=== PATIENT | female | born 1980 | race American Indian/Alaskan Native ===

== ENCOUNTER 2017-12-26 03:52 | Emergency (ER) | payer OTHER ==
[2017-12-26 04:06] VITALS: BP 113/79
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
[2017-12-26] MEDS ORDERED: NORCO 5/325 PO ONE (04:24)
[2017-12-26 04:34] LABS: HCG Qualitative,Urine Negative (Negative)
--- NOTE | 2017-12-26 05:16 | XRay Report ---
FINAL REPORT EXAM: XR SHOULDER 2+V RT HISTORY: Rt shoulder swelling, pain and contusion post trauma TECHNIQUE: Three views of the right shoulder were submitted. FINDINGS: There is an acute to subacute comminuted fracture involving the distal end of the right clavicle. There is mild displacement of the fracture fragments. The AC joint appears intact. The glenohumeral joint appears intact also. The subacromial space is normal. The surrounding soft tissues otherwise are unremarkable. IMPRESSION: Acute subacute comminuted mildly displaced fracture of the distal end of the right clavicle.
== END 2017-12-26 05:51 | disposition home or self-care (01) ==
LOC: ED 03:52
DX: S42.031A Displaced fracture of lateral end of right clavicle, initial encounter for closed fracture (principal); Y04.8XXA Assault by other bodily force, initial encounter; Y93.89 Activity, other specified; Y99.8 Other external cause status; Y92.89 Other specified places as the place of occurrence of the external cause
CPT/HCPCS: 81025

== ENCOUNTER 2021-04-03 19:09 | Emergency (ER) | payer OTHER ==
[2021-04-03 19:44] VITALS: BP 134/61
[2021-04-03] MEDS ORDERED: HYDROcodone/ACETAMINOPHEN 5-325 MG TAB PO ONE (20:17)
[2021-04-03] MEDS ORDERED: ONDANSETRON 4 MG ODT TAB PO ONE (20:18)
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
--- NOTE | 2021-04-03 21:06 | XRay Report ---
RIGHT SHOULDER, 3 VIEWS INDICATION / CLINICAL INFORMATION: right shoulder pain. COMPARISON: 12/26/2017 FINDINGS: Old healed fracture of the distal clavicle. No acute fracture or dislocation noted. No significant de generative change. No abnormal soft tissue calcifications. IMPRESSION: No acute fracture or dislocation. Signer Name: Kimberly Stevens MD Signed: 04/03/2021 9:02 PM Workstation Name: [id number]
== END 2021-04-03 21:47 | disposition home or self-care (01) ==
LOC: ED 19:09
DX: S49.91XA Unspecified injury of right shoulder and upper arm, initial encounter (principal); Z98.890 Other specified postprocedural states; X50.0XXA Overexertion from strenuous movement or load, initial encounter; X50.9XXA Other and unspecified overexertion or strenuous movements or postures, initial encounter; Y93.89 Activity, other specified; Y92.89 Other specified places as the place of occurrence of the external cause; Y99.8 Other external cause status
CPT/HCPCS: 99284; Q0162

== ENCOUNTER 2021-07-01 11:17 | Emergency (ER) | payer OTHER ==
[2021-07-01] MEDS ORDERED: ONDANSETRON 4 MG/2 ML INJ IV ONE (15:02)
[2021-07-01] MEDS ORDERED: MORPHINE 4 MG/1 ML INJ IV ONE (15:02)
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
[2021-07-01 15:58] LABS: Basophils % (Auto) 0.4 % (0.0-1.8); Eosinophils # (Auto) 0.1 K/mm3 (0.0-0.4); Eosinophils % (Auto) 1.1 % (0.0-4.3); Hematocrit 42.4 % (30.3-42.9); Hemoglobin 13.7 gm/dl (10.1-14.3); Lymphocytes # (Auto) 1.2 K/mm3 (1.2-5.4); Lymphocytes % (Auto) 22.7 % (13.4-35.0); Mean Corpuscular HGB Conc 32 % (30-34); Mean Corpuscular Volume 89 fl (79-97); Monocytes # (Auto) 0.3 K/mm3 (0.0-0.8); Monocytes % (Auto) 6.3 % (0.0-7.3); Platelet Count 174 K/mm3 (140-440); Red Blood Count 4.77 M/mm3 (3.65-5.03); Red Cell Distribution Width 13.6 % (13.2-15.2)
[2021-07-01 16:15] LABS: Alanine Aminotransferase 25 units/L (7-56); Albumin 4.3 g/dL (3.9-5); Blood Urea Nitrogen 5 mg/dL (7-17); Hemolysis Index 12
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
[2021-07-01 16:26] LABS: BUN/Creatinine Ratio 13
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
[2021-07-01] MEDS ORDERED: KETOROLAC 30 MG/1 ML INJ IV ONE (17:39)
[2021-07-01 18:04] VITALS: BP 133/82
== END 2021-07-01 18:09 | disposition home or self-care (01) ==
LOC: ED 11:17
DX: S93.401A Sprain of unspecified ligament of right ankle, initial encounter (principal); S30.0XXA Contusion of lower back and pelvis, initial encounter; S80.02XA Contusion of left knee, initial encounter; V09.9XXA Pedestrian injured in unspecified transport accident, initial encounter; Y93.89 Activity, other specified; Y92.89 Other specified places as the place of occurrence of the external cause; Y99.8 Other external cause status
CPT/HCPCS: 29515; 36415; 70450; 72125; 72131; 73562; 73610; 80053; 84703; 85025; 96374; 96375; 99285; J1885; J2270; J2405